=== PATIENT | male | born 1995 | race Caucasian/White ===

== ENCOUNTER 2021-01-04 18:13 | Emergency (ER) | payer OTHER, SELFPAY ==
[2021-01-04 18:22] VITALS: BP 151/79; PULSE 121; RESP 20; TEMP 37.4; O2SAT 97
[2021-01-04 19:03] LABS: COVID19 -Nasal RAPID Negative (Negative)
--- NOTE | 2021-01-04 19:47 | ED_ITS ---
HPI - URI/Sore Throat <JARON Ball - Last Filed: 01/04/21 20:02> General Chief Complaint: Upper Respiratory Symptoms Stated Complaint: Fever/Sore Throat Time Seen by Provider: 01/04/21 19:34 Source: patient Mode of arrival: Ambulatory History of Present Illness HPI Narrative: 25-year-old male previously healthy with no contributory medical history presents to the emergency department today for 1 day of sore throat and fever of 104 F at home with mild congestion. He is unvaccinated for COVID, denies a cough, reports that he was sharing his feet 10 with his friends the other day and somebody was sick. The patient denies any nausea, vomiting, swelling of his mouth, or under his tongue, difficulty swallowing, abdominal pain swollen lymph nodes, or any other symptoms besides fever and sore throat. Severity: moderate Relieving factors: nothing Description of mucous: clear and other (Sticky) Able to tolerate fluids by mouth: Yes Review of Systems <JARON Ball - Last Filed: 01/04/21 20:02> Review of Systems Narrative: General: Endorses fever, denies chills Head/Neck: denies headache, neck pain, endorses sore throat, and throat edema Eyes: denies visual changes, eye pain Cardio: denies chest pain, palpitations Respiratory: denies shortness of breath, cough, stridor or wheezing GI: denies abdominal pain, nausea, vomiting, or diarrhea : denies dysuria, hematuria MSK: denies joint pain, muscle weakness Skin: denies rash, itching Neuro: denies numbness, tingling Patient History <JARON Ball - Last Filed: 01/04/21 20:02> Social History Smoking Status: Current every day smoker Smoking Status: Current every day smoker tobacco type: cigars and vaping Exam <JARON Ball - Last Filed: 01/04/21 20:02> Narrative Exam Narrative: Independently reviewed vitals signs and nursing notes. General: Awake, alert, nontoxic, no cardiorespiratory distress Head/Neck: Atraumatic, neck full range of motion Eyes: EOMI, conjunctiva normal Nose: nares patent, no rhinorrhea Mouth/Throat: Status post T&A removal, moist mucus membranes, posterior pharynx erythematous with mild edema, cobblestoning, no oral lesions, uvula is midline, no signs of submandibular or jaison tonsillar abscess or Miguel's angina Cardio: Regular rate and rhythm, no peripheral edema Respiratory: respirations unlabored without wheezing, stridor, or rales. No retractions. GI: Abdomen soft, nontender MSK: Moves all extremities, neurovascularly intact Skin: Normal capillary refill, no rash Neuro: Normal speech and cognition, normal gait Initial Vital Signs Initial Vital Signs: Vital Signs Temperature 99.3 F 01/04/21 18:22 Pulse Rate 121 H 01/04/21 18:22 Respiratory Rate 20 01/04/21 18:22 Blood Pressure 151/79 H 01/04/21 18:22 Pulse Oximetry 97 01/04/21 18:22 <Jannet Pennington DO - Last Filed: 01/18/21 08:14> Initial Vital Signs Initial Vital Signs: Vital Signs Temperature 99.3 F 01/04/21 18:22 Pulse Rate 121 H 01/04/21 18:22 Respiratory Rate 20 01/04/21 18:22 Blood Pressure 151/79 H 01/04/21 18:22 Pulse Oximetry 97 01/04/21 18:22 Course <JARON Ball - Last Filed: 01/04/21 20:02> Orders Ordered: Discontinued Medications Dexamethasone (Dexamethasone 10 Mg/Ml Vial) 10 mg PO NOW ONE Stop: 01/04/21 19:44 Last Admin: 01/04/21 21:59 Dose: 10 mg Documented by: MARYCARMEN Vital Signs Vital signs: Vital Signs - 8 hr 01/04/21 18:22 Temperature 99.3 F Pulse Rate 121 H Respiratory Rate 20 Blood Pressure 151/79 H Pulse Oximetry 97 <DO Nicky Tobar Last Filed: 01/18/21 08:14> Orders Ordered: Discontinued Medications Dexamethasone (Dexamethasone 10 Mg/Ml Vial) 10 mg PO NOW ONE Stop: 01/04/21 19:44 Last Admin: 01/04/21 21:59 Dose: 10 mg Documented by: MARYCARMEN Vital Signs Vital signs: Vital Signs - 8 hr 01/04/21 18:22 Temperature 99.3 F Pulse Rate 121 H Respiratory Rate 20 Blood Pressure 151/79 H Pulse Oximetry 97 MDM - URI/Sore Throat <JARON Ball - Last Filed: 01/04/21 20:02> Lab Data Labs: Lab Results 01/04/21 01/04/21 Range/Units 18:30 18:30 SARS-CoV-2 (PCR) Negative (Negative) Group A Strep (PCR) Cancelled Point of Care Testing Rapid Strep A Negative [facility] Narrative Medical decision making narrative: 25-year-old male presents to the emergency department for 1 day of fever and pharyngitis. His COVID was negative as well as his rapid group a strep. Posterior pharynx is erythematous with mild cobblestoning, without exudate, patient had a T&A removal many years ago, no signs of peritonsillar abscess or Miguel's angina. Throat culture is sent and is pending. Patient was given dexamethasone while in the emergency department, is tolerating p.o. without difficulty, is able to manage secretions, is in no apparent distress. Suspect viral pharyngitis, patient was mildly tachycardic with the mild temperature of 99.3?, encouraged hydration with clear liquids, cessation of smoking, and follow up with primary care in the next 1-2 days if not better. Differential includes infectious mono, viral pharyngitis, group B strep pharyngitis or from other bacteria including chlamydia, gonorrhea, or other. Patient is not immunosuppressed, does not have tonsils or adenoids, differential also includes peritonsillar abscess although uvula midline without unilateral edema. Patient is appropriate and amenable to discharge home. Vital signs are stable on repeat examination is unremarkable. Patient has been informed of results. Patient has been given strict return to ER precautions for any new or worsening symptoms. Patient understands to follow up closely with outpatient providers as instructed. Patient understands plan and agrees to discharge home. All questions and concerns answered at this time. <Jannet Pennington DO - Last Filed: 01/18/21 08:14> Lab Data Labs: Lab Results 01/04/21 01/04/21 Range/Units 18:30 18:30 SARS-CoV-2 (PCR) Negative (Negative) Group A Strep (PCR) Cancelled Point of Care Testing Rapid Strep A Negative Discharge Plan Departure Patient Disposition: Home Clinical Impression: Pharyngitis Qualifiers: Pharyngitis/tonsillitis etiology: unspecified etiology Qualified Code(s): J02.9 - Acute pharyngitis, unspecified Instructions: DI for Pharyngitis/Tonsillopharyngitis -- Adult Activity Restrictions/Additional Instructions: *You have been diagnosed with pharyngitis/tonsillitis, a negative group a strep test, negative COVID test. Help that you feel better tomorrow, if you have fever up to 104 again please take Tylenol or ibuprofen and hydrated as best as possible. If he develops any throat closing symptoms, difficulty swallowing, please return immediately to the emergency department. Your throat culture will take a couple of days to result, please have your phone available in a couple of days in case somebody calls you may need antibiotic coverage, but at this point it appears to be viral. If you do not get better in the next couple of days please follow-up with your primary care provider or return to the emergency department for further testing. *What to do: *Please continue to take your regular medications as directed. [ ] New medication prescriptions sent to your pharmacy: [ ] [ ] New medication written as a paper prescription [x ] No new medications given *Please follow up with your primary care provider in 2-3 days, call for an appointment. Let them know you were seen in the Emergency Department and that we ask that you be seen in follow up. We will electronically transmit a record of today's note if your PCP is in our system *If you do not have a primary care provider please contact the [facility] Resource line at [phone]. They will ask some questions about your medical history and help get you set up with a doctor in the community. *Return to Emergency Department if you should have any new, worsening or concerning symptoms, such as [fever greater than 101F, chills, worsening pain, persistent vomiting or other bothersome symptoms] <Jannet Pennington, - Last Filed: 01/18/21 08:14> Cosign ED Attending Daron Attestation: I was immediately available in the department for consultation. Documentation has been reviewed.
[2021-01-04] MEDS: DEXAMETHASONE 10 MG/ML VIAL PO (21:59)
== END 2021-01-04 21:59 | disposition home or self-care (01) ==
PROVIDERS: Emergency Medicine; Emergency Provider Nurse Practitioner Critical Care Medicine
DX: J02.9 Acute pharyngitis, unspecified (principal); Z20.822 Contact with and (suspected) exposure to COVID-19
CPT/HCPCS: 87070; 87635; 87880; 99283; C9803; J1100